=== PATIENT | female | born 1975 | race Caucasian/White ===

== ENCOUNTER 2018-10-20 12:30 | Emergency (ER) | payer MEDICAID ==
[~2018-10-20] VITALS: Ht 172.7 cm; Wt 79.4 kg
[~2018-10-20 12:30] MED LIST: ADVAIR HFA115 MCG/21 INH; ADVAIRDISKUS; ALBUTEROL NEB; AMBIEN 10 MG TA10 MG PO; DILANTIN100 MG PO; EFFEXOR XR150 MG PO; ESTRADIOL 1 MG T1 M1 PO; IBUPROFEN 800800 M1 PO; IBUPROFEN 800800 MG PO; NORCO 5-325 TA1 EACH PO; OMEPRAZOLE 20 M20 M1 PO; SEROQUEL XR400 M1 PO; VENTOLIN HFA 1818 GM INH; XANAX XR2 MG PO; dicyclomine; dilantin PO; proair
[2018-10-20] MEDS ORDERED: IBUPROFEN 800800 MG PO (14:38)
[2018-10-20] MEDS ORDERED: NORCO 5-325 TA1 EACH PO (14:38)
[2018-10-20 14:59] VITALS: BP 157/90
== END 2018-10-20 15:01 | disposition home or self-care (01) ==
LOC: M.ERS 12:30
DX: S97.112A Crushing injury of left great toe, initial encounter (principal); F17.200 Nicotine dependence, unspecified, uncomplicated; J45.909 Unspecified asthma, uncomplicated; G47.00 Insomnia, unspecified; Z88.5 Allergy status to narcotic agent; Z90.710 Acquired absence of both cervix and uterus; Z91.048 Other nonmedicinal substance allergy status; W23.1XXA Caught, crushed, jammed, or pinched between stationary objects, initial encounter; Y92.89 Other specified places as the place of occurrence of the external cause; Y93.89 Activity, other specified; Y99.8 Other external cause status